=== PATIENT | male | born 1985 | race Caucasian/White ===

== ENCOUNTER 2019-03-03 23:40 | Emergency (ER) | payer SELFPAY ==
[2019-03-04 00:05] VITALS: BP 133/91; PULSE 81; TEMP 97; BMI 24.1
--- NOTE | 2019-03-04 01:23 | PDOC ---
*Physical Exam - Vital Signs Last Vital Signs Temp Pulse Resp BP Pulse Ox 97 F L 81 18 133/91 99 03/03/19 23:56 03/03/19 23:56 03/03/19 23:56 03/03/19 23:56 03/03/19 23:56 Medical Decision Making - Medical Decision Making 03/04/19 01:22 Patient seen by the advanced practice provider under my direct supervision. Ancillary testing reviewed as necessary. I agree with plan as outlined by the advanced practice provider. Discharge - Discharge Information Problems reviewed: Yes Clinical Impression/Diagnosis: Cough Disposition: HOME - Additional Discharge Information Prescriptions: Benzonatate [Tessalon Pearls -] 100 mg PO TID PRN #21 capsule PRN Reason: Cough Famotidine [Pepcid] 20 mg PO DAILY #14 tablet - Follow up/Referral - Patient Discharge Instructions Patient Printed Discharge Instructions: DI for Cough -- Adult Additional Instructions: drink plenty of fluids use tessalon keyanna as prescribed. follow up with your doctor as soon as possible. - Post Discharge Activity Work/Back to School Note: Back to Work
[2019-03-04] MEDS ORDERED: ALBUTEROL SO4 2.5/IPRATROPIUM 0.5 INH SOL 3 ML VIAL.NEB. NEB ONE ×2 (02:06→02:45)
[2019-03-04] MEDS ORDERED: FAMOTIDINE 10 MG TABLET PO ONE (02:17)
--- NOTE | 2019-03-04 02:19 | PDOC ---
History of Present Illness - General Chief Complaint: Respiratory Stated Complaint: COUGH Time Seen by Provider: 03/04/19 01:15 History Source: Patient - History of Present Illness Initial Comments: 03/04/19 02:16 33-year-old male complaining of cough for the last 2 weeks. Denies fever/chills , nausea, vomiting. Denies recent travel, reports cough is worse at night pmhx: none drink several times in week 03/04/19 02:17 Past History - Past Medical History Allergies/Adverse Reactions: Allergies Allergy/AdvReac Type Severity Reaction Status Date / Time No Known Allergies Allergy Verified 03/03/19 23:59 Home Medications: Ambulatory Orders Benzonatate [Tessalon Pearls -] 100 mg PO TID PRN #21 capsule 03/04/19 Famotidine [Pepcid] 20 mg PO DAILY #14 tablet 03/04/19 COPD: No - Psycho Social/Smoking Cessation Hx Smoking History: Never smoked Review of Systems - Review of Systems Able to Perform ROS?: Yes Is the patient limited Faroese proficient: No Constitutional: No: Symptoms Reported, See HPI, Chills, Diaphoresis, Fever, Loss of Appetite, Malaise, Night Sweats, Weakness, Weight Stable, Unintentional Wgt. Loss, Unexplained wgt Loss, Other Respiratory: Yes: Cough. No: Symptoms reported, See HPI, Orthopnea, Shortness of Breath, SOB with Exertion, SOB at Rest, Stridor, Wheezing, Productive cough, Hemoptysis, Other Cardiac (ROS): No: Symptoms Reported, See HPI, Chest Pain, Edema, Irregular Heart Rate, Lightheadedness, Palpitations, Syncope, Chest Tightness, Other *Physical Exam - Vital Signs Last Vital Signs Temp Pulse Resp BP Pulse Ox 97 F L 81 18 133/91 99 03/03/19 23:56 03/03/19 23:56 03/03/19 23:56 03/03/19 23:56 03/03/19 23:56 - Physical Exam General Appearance: Yes: Appropriately Dressed Respiratory/Chest: positive: Lungs Clear, Normal Breath Sounds Cardiovascular: positive: Regular Rhythm, Regular Rate Integumentary: positive: Normal Color, Dry, Warm Neurologic: positive: Fully Oriented, Alert ED Treatment Course - RADIOLOGY Radiology Studies Ordered: Category Date Time Status CHEST PA & LAT [RAD] Stat Radiology 03/04/19 01:16 Taken ED Progress Note - Progress Note Progress Note: 03/04/19 04:31 A: cough; uri vs GERD? P: duoneb maalox 1 pcp follow up Discharge - Discharge Information Problems reviewed: Yes Clinical Impression/Diagnosis: Cough Condition: Improved Disposition: HOME - Additional Discharge Information Prescriptions: Benzonatate [Tessalon Pearls -] 100 mg PO TID PRN #21 capsule PRN Reason: Cough Famotidine [Pepcid] 20 mg PO DAILY #14 tablet - Follow up/Referral - Patient Discharge Instructions Patient Printed Discharge Instructions: DI for Cough -- Adult Additional Instructions: drink plenty of fluids use tessalon keyanna as prescribed. follow up with your doctor as soon as possible. - Post Discharge Activity Work/Back to School Note: Back to Work
[2019-03-04] MEDS ORDERED: MAG HYDROX/AL HYDROX/SIMETH 30 ML UNIT-DOSE CUP PO ONE (02:42)
[2019-03-04] MEDS ORDERED: MAG HYDROX/AL HYDROX/SIMETH 30 ML UNIT-DOSE CUP ONE (02:45)
== END 2019-03-04 04:00 | disposition home or self-care (01) ==
LOC: JER 23:40
PROC: 3E0F7GC Introduction of Other Therapeutic Substance into Respiratory Tract, Via Natural or Artificial Opening (ICD-10-PCS; principal; 2019-03-03)
DX: R05 Cough (principal)
CPT/HCPCS: 71046-TC-FY; 99281-25